=== PATIENT | male | born 1965 | race Caucasian/White ===

== ENCOUNTER 2021-08-15 08:12 | Emergency (ER) | payer OTHER, SELFPAY ==
[2021-08-15 08:23] VITALS: BP 100/47; PULSE 80; RESP 16; TEMP 36.8; O2SAT 100
--- NOTE | 2021-08-15 09:28 | ED.URI ---
HPI - URI/Sore Throat General Chief Complaint: Upper Respiratory Infection Stated Complaint: st Time Seen by Provider: 08/15/21 09:20 Source: patient Mode of arrival: ambulatory Limitations: no limitations History of Present Illness HPI Narrative: 56 y/o male presents to the ER today for complaints of sore throat, fatigue and body aches that started yesterday. He did a covid test at home that was negative. He denies cough or chest congestion. No nausea, vomiting or diarrhea. Sore throat seems to be his most severe symptom. He has difficulty drinking much due to the sore throat. No rash. Related Data Allergies Allergy/AdvReac Type Severity Reaction Status Date / Time No Known Allergies Allergy Unknown Unverified 10/11/17 13:54 Review of Systems Constitutional: Constitutional: Denies chills, Reports fatigue and Denies fever(s) Eyes: Eyes: Reports no additional eye complaints ENT: Denies dizziness, Denies nasal congestion and Reports sore throat Cardiovascular: Cardiovascular: Denies chest pain Respiratory: Respiratory: Denies chest congestion, Denies cough, Denies dyspnea and Denies wheezing Gastrointestinal: Gastrointestinal: Denies bloating, Denies constipation, Denies heartburn, Denies diarrhea, Denies nausea and Denies vomiting Genitourinary: Genitourinary: Reports no additional male genitourinary complaints Musculoskeletal: Musculoskeletal: Denies back pain, Reports myalgias and Denies arthralgias Integumentary/Breasts: Skin/Breast: Denies rash Neurologic: Denies vertigo and Denies dizziness Psychiatric: Psychiatric: Denies anxiety and Denies depression Endocrine: Endocrine: Reports no additional endocrine complaints Hematologic/Lymphatic: Hematologic/Lymphatic: Reports no additional hematologic/lymphatic complaints Allergic/Immunologic: Allergic/Immunologic: Reports no additional allergic/immunologic complaints [facility] Past Medical History Medical History Hypotension Social History Social History (Updated 08/15/21 @ 09:58 by Chloe Valdez APRN) Smoking status: Never smoker Alcohol intake: never Substance use: never Exam Const: General: no acute distress and alert Orientation/consciousness: patient oriented x3 HENMT: General nose exam: no nasal discharge noted Face and sinus: sinuses nontender Other: mild erythema posterior oropharynx, no exudates, no tonsillar swelling Eyes: Conjunctivae: conjunctivae normal Neck: Neck: normal visual inspection Chest: Chest palpation & inspection: normal inspection of the chest Resp: Effort & Inspection: normal respiratory effort Auscultation: clear to auscultation bilaterally Cardio: Rate: regular rate Rhythm: regular rhythm GI: GI Palp: Yes Soft to palpation, No Tenderness to palpation present (GI) and No Guarding due to palpation present (GI) Auscultation: normal bowel sounds Back/Spine/Pelvis: Back: no CVA tenderness Skin: General skin exam: normal color Rashes: no rashes Neuro: General: patient oriented x3 and moves all extremities Extrem: General: normal to inspection Psych: Mental Status: mental status grossly normal Affect: normal affect Attitude: cooperative Course Vital Signs Vital signs: Vital Signs Temperature 36.8 C 08/15/21 08:23 Pulse Rate 80 08/15/21 08:23 Respiratory Rate 16 08/15/21 08:23 Blood Pressure 100/47 L 08/15/21 08:23 Pulse Oximetry 100 08/15/21 08:23 Temperature 36.8 C 08/15/21 08:23 Pulse Rate 80 08/15/21 08:23 Respiratory Rate 16 08/15/21 08:23 Blood Pressure 100/47 L 08/15/21 08:23 Pulse Oximetry 100 08/15/21 08:23 MDM - URI/Sore Throat Differential Diagnosis Differential diagnosis: Likely upper respiratory infection, sinusitis, viral infection, bronchitis and pharyngitis Lab Data Attestation: I reviewed the patient's lab results. Labs: Lab Results 08/15/21 Range/Units 09:58 SARS-Co
[2021-08-15 10:40] LABS: SARS-CoV-2 RNA PCR Positive
[2021-08-15 10:50] VITALS: BP 102/50; PULSE 82; RESP 18; O2SAT 100
== END 2021-08-15 10:50 | disposition home or self-care (01) ==
PROVIDERS: Emergency Provider Nurse Practitioner Family
DX: U07.1 COVID-19 (principal)
CPT/HCPCS: 87081; 87880; 99283; C9803; U0003; U0005

== ENCOUNTER 2023-10-25 08:43 | Emergency (ER) | payer OTHER, SELFPAY ==
[2023-10-25] VITALS (11 sets, daily range): BP systolic 68–127; BP diastolic 39–77; PULSE 52–57; RESP 13–18; TEMP 36.4; O2SAT 20–98
--- NOTE | ~2023-10-25 | CT_ITS ---
EXAMINATION: CT BRAIN W/O DATE: 10/25/2023 09:17 INDICATION: Autoimmune neuropathy. Status post fall. TECHNIQUE: Computed tomography (CT) of the head was performed without intravenous contrast. The dose- length product was 605.33 mGy-cm. Automated exposure control and iterative reconstruction technique w ere employed. COMPARISON: No prior studies for comparison. FINDINGS: Normal brain parenchymal volume for age. Normal quintana-white differentiation. No acute intrac ranial hemorrhage, infarction, mass or mass effect. No ventriculomegaly or midline shift. Midline sagittal images demonstrate a normal corpus callosum, c raniovertebral junction and sella turcica. Basilar cisterns are patent. Paranasal sinuses and mastoids are pneumatized. No depressed skull fractures. IMPRESSION: 1. No acute intracranial abnormality. Reviewed, dictated and finalized at location B.
--- NOTE | ~2023-10-25 | XR_ITS ---
XR chest 2V Ordering provider: Brandon Juarez MD History: 58 years Male with . syncope, H/O LOW BLOOD PRESSURE . Comparison: June 18, 2014 FINDINGS: MEDIASTINUM: The cardiac silhouette is not enlarged. LUNGS: No infiltrates, effusions or pneumothorax. Granuloma in the right midzone unchanged from previous examination. OTHER: No free air under the diaphragm. IMPRESSION: No acute cardiopulmonary pathology. Reviewed, dictated and finalized at location A.
--- NOTE | 2023-10-25 08:48 | ECG_ITS ---
Test Date: 2023-10-25 08:52:54 Measurements Intervals [place] Rate: 53 P: 38 DE: 137 QRS: 43 QRSD: 92 T: 50 QT: 458 QTc: 432 Interpretive Statements SINUS BRADYCARDIA BORDERLINE ECG No previous ECG available for comparison Electronically Signed On 10-25-2023 09:04:19 CDT by Jay Diaz D.O.
--- NOTE | 2023-10-25 09:03 | ED.SYNCOPE ---
HPI - Syncope General Chief Complaint: Syncope Stated Complaint: syncopy Time Seen by Provider: 10/25/23 08:58 Source: patient, family and old records reviewed Mode of arrival: EMS Limitations: no limitations History of Present Illness HPI narrative: Patient is a 58-year-old male who presents the ED via EMS with report of syncope. 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 Patient has Hx of autonomic dysfunction and orthostatic hypotension since having an influenza illness 6 years ago. He has been worked up extensively for this. He is on midodrine and fludrocortisone for this. Has had similar syncopal episodes in the past, though reports today's episode lasted much longer than usual. Patient reports he woke up this morning and went to use the restroom when he began feeling dizzy and lightheaded. He notes he often feels dizzy with standing upright. He then lowered himself to the ground, sitting against the wall, and had a syncopal episode. reports patient was unresponsive, pale, with gasping breathes for approximately 3-5 minutes. She contacted EMS. Patient states he feels fatigued currently, but does not currently feel dizzy or lightheaded. Reports mild nausea. Denies vomiting. Denies chest pain, shortness of breath, focal weakness or numbness, vision changes, abdominal pain. Related Data Allergies Allergy/AdvReac Type Severity Reaction Status Date / Time No Known Allergies Allergy Unknown Verified 10/25/23 08:55 Review of Systems Review of Systems: CONSTITUTIONAL: Reports fatigue. Denies fever, chills, or sweats. ENT: Denies vision changes. CARDIOVASCULAR: Denies chest pain, palpitations, or edema. RESPIRATORY: Denies dyspnea. GASTROINTESTINAL: See HPI. MUSCULOSKELETAL: Denies back pain, extremity pain, myalgia. NEUROLOGIC: See HPI. All systems reviewed & are unremarkable except as noted in HPI and below PMFSH Past Medical History Medical History Hypotension Social History Social History Smoking status: Never smoker Alcohol intake: never Substance use: never Exam Narrative: GENERAL: Well appearing, well-nourished, non-toxic, in no acute distress. HEAD: Normocephalic, atraumatic. EYES: PERRL/EOMI, conjunctivae clear bilaterally. No nystagmus. NECK: Supple. No meningeal signs. RESPIRATORY: Airway patent, respirations nonlabored. Clear to auscultation bilaterally, no rales, rhonchi, wheezing. CARDIOVASCULAR: Bradycardic with regular rhythm without murmurs, rubs, or gallops. Peripheral pulses 2+ and equal bilaterally. ABDOMINAL: Soft, nontender, nondistended. Normoactive BS. MUSCULOSKELETAL: Moves all extremities. No gross deformities. SKIN: Warm, dry, slightly pale appearing. NEURO: A&O X3. Speech clear. Follows commands. CN II-XII intact. Sensation grossly intact. Steady gait. No ataxic movements. Strength 5/5 in upper and lower extremities bilaterally. No pronator drift. 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 PSYCHIATRIC: Appropriate mood and affect. Normal interaction. Course Vital Signs Vital signs: Vital Signs Temperature 97.6 F 10/25/23 08:40 Pulse Rate 54 L 10/25/23 08:40 Respiratory Rate 13 10/25/23 08:40 Blood Pressure 118/60 10/25/23 08:40 Pulse Oximetry 97 10/25/23 08:40 Oxygen Delivery Room Air 10/25/23 08:40 Temperature 97.6 F 10/25/23 08:40 Pulse Rate 56 L 10/25/23 13:09 Respiratory Rate 18 10/25/23 13:09 Blood Pressure 120/62 10/25/23 13:09 Pulse Oximetry 20 L 10/25/23 13:09 Oxygen Delivery Room Air 10/25/23 08:40 MDM - Syncope MDM Narrative Medical decision making narrative: Patient presented to ED with syncopal episode, history of orthostatic hypotension on midodrine and fludrocortisone. History of similar. Patient's vitals are stable upon arrival. Blood pressure initially 118/60. He was noted to
[2023-10-25 09:07] LABS: Basophils Absolute Auto 0.1 K/mm3 (0.0-0.1); Basophils Percent Auto 1.5 % (0.2-1.2); Eosinophils Absolute Auto 0.3 K/mm3 (0-0.3); Hematocrit 37.3 % (42.0-52.0); Hemoglobin 12.8 g/dL (14.0-18.0); Immature Granulocyte Absolute 0.04 K/mm3 (0.00-0.031); Lymphocytes Percent Auto 41.3 % (18.3-44.2); Mean Corpuscular HGB Conc 34.3 g/dl (32-36); Mean Corpuscular Hemoglobin 31.1 pg (26-34); Mean Corpuscular Volume 90.5 fl (80-100); Mean Platelet Volume 11.4 fl (7.4-10.4); Monocytes Absolute Auto 0.5 K/mm3 (0.1-0.6); Monocytes Percent Auto 11.2 % (2.6-8.5); Neutrophils Absolute Auto 1.6 K/mm3 (1.3-6.7); Platelet Count Result 168 k/mm3 (150-375); Red Blood Count 4.12 M/mm3 (4.6-6.20); Red Cell Distribution Width 12.4 % (11.5-14.5); White Blood Count 4.1 K/mm3 (4.5-10.0)
[2023-10-25 09:16] LABS: Alanine Aminotransferase 14 U/L (6-50); Albumin Level 4.2 g/dL (3.5-5.1); Alkaline Phosphatase 60 U/L (38-126); Anion Gap 11 mmol/L (4-12); Aspartate Amino Transferase 21 U/L (17-59); Bilirubin,Total 0.9 mg/dL (0.2-1.3); Blood Urea Nitrogen 18 mg/dL (9-20); Calcium 9.3 mg/dL (8.4-10.2); Carbon Dioxide 23 mmol/L (22-30); Chloride 106 mmol/L (98-107); Estimated CRCL calculation 90 ml/min; Estimated Glomerular Filt Rate > 60; Glucose 126 mg/dL (65-110); Potassium 3.8 mmol/L (3.4-5.0); Sodium 140 mmol/L (137-145)
[2023-10-25] MEDS: SODIUM CHLORIDE 0.9% IV 1,000 ML 999 ML IV CONT ×2 (09:29→09:54)
[2023-10-25 09:36] LABS: Magnesium 2.1 mg/dL (1.6-2.3)
[2023-10-25 09:49] LABS: Troponin I < 0.012 ng/mL (0.000-0.034)
[2023-10-25] MEDS: ONDANSETRON INJ 4 MG/2 ML VIAL IV PUSH (09:55)
[2023-10-25 10:05] LABS: Lactic Acid Reflex 0.7 mmol/L (0.7-2.0)
== END 2023-10-25 13:11 | disposition home or self-care (01) ==
PROVIDERS: Emergency Medicine; Emergency Provider Physician Assistant
DX: I95.1 Orthostatic hypotension (principal); R00.1 Bradycardia, unspecified
CPT/HCPCS: 36415; 70450; 71046; 80053; 83605; 83735; 84484; 85025; 93005; 96361; 96374; 99284; J2405; J7030